=== PATIENT | female | born 1930 | race Caucasian/White ===

== ENCOUNTER 2017-06-22 10:39 | Inpatient (IN) | payer MEDICARE, BC ==
[~2017-06-22] VITALS: Ht 152.4 cm; Wt 58.1 kg
[2017-06-22 13:00] VITALS: BP 175/63
[2017-06-22] MEDS ORDERED: ASPI-630 PO (14:34)
[2017-06-22] MEDS ORDERED: AMLO10TA2 PO (14:37)
[2017-06-22] MEDS ORDERED: ALEN35TA6 PO (14:37)
[2017-06-22] MEDS ORDERED: CALC500T PO (14:52)
[2017-06-22] MEDS ORDERED: GLUC500T10 PO (14:52)
[2017-06-22] MEDS ORDERED: CRAN200C2 PO (14:52)
[2017-06-22] MEDS ORDERED: MULT1TAB52 PO (14:52)
[2017-06-22] MEDS ORDERED: TRAM50TA PO (14:55)
[2017-06-22] MEDS ORDERED: OMEP40CA5 PO (14:55)
[2017-06-22] MEDS ORDERED: TIOT18CA IH (14:55)
[2017-06-22] MEDS ORDERED: SALM50DI IH (14:55)
[2017-06-22 15:00] VITALS: BP 166/70
[2017-06-22] MEDS ORDERED: MORPHINE SULFATE 2 MG/ML DISP.SYRIN. IV PRN (15:15)
[2017-06-22] MEDS ORDERED: traMADol 50 MG TABLET PO PRN (15:30)
[2017-06-22] MEDS: methylPREDNISolone SOD SUCC PF 40 MG/ML VIAL. IV SCH ×2 (15:32→22:02)
[2017-06-22] MEDS: AZITHROMYCIN 250 MG TABLET. PO SCH (15:33)
[2017-06-22] MEDS: LIDOCAINE (700MG/PATCH) PATCH. TD SCH (15:33)
[2017-06-22] MEDS: MORPHINE SULFATE 4 MG/ML DISP.SYRIN. IV PRN ×2 (15:40→18:21)
[2017-06-22] MEDS: IPRATRPIUM/ALBUTEROL 0.5/2.5MG 3 ML NEBU. NEB SCH ×2 (16:09→20:09)
[2017-06-22] MEDS: oxyCODONE IR 5 MG TABLET PO PRN ×2 (17:32→23:58)
[2017-06-22] MEDS: cefTRIAXone IV Push 1 GM VIAL. IVP SCH (17:32)
[2017-06-22 19:00] VITALS: BP 154/71
[2017-06-22] MEDS: DOCUSATE SODIUM 100 MG CAPSULE. PO SCH (20:07)
[2017-06-22] MEDS: LACTOBACILLUS RHAMNOSUS GG 1 CAPSULE. PO SCH (20:07)
[2017-06-22 23:46] VITALS: BP 160/91
[2017-06-23] VITALS (10 sets, daily range): BP systolic 141–163; BP diastolic 68–87
[2017-06-23] MEDS: oxyCODONE IR 5 MG TABLET PO PRN (05:08)
[2017-06-23 06:06] LABS: INR 1.2 (0.8-1.1); PROTHROMBIN TIME PATIENT 14.4 SEC (11.7-14.0)
[2017-06-23 06:08] LABS: BASO % 0 % (0-3); EOS % 0 % (0-3); HEMATOCRIT 40.8 % (36.0-47.0); HEMOGLOBIN 13.6 g/dL (12.0-15.5); LYMPH # 1.1 x10^3/uL (1.0-4.8); LYMPH % 14 % (24-48); MEAN CORPUSCULAR HEMOGLOBIN 31 pg (25-35); MEAN CORPUSCULAR HGB CONC 33 g/dL (31-37); MEAN CORPUSCULAR VOLUME 93 fL (79-100); MONO % 4 % (0-9); NEUT % 82 % (31-73); PLATELET COUNT 184 x10^3/uL (140-400); RED BLOOD COUNT 4.39 x10^6/uL (3.50-5.40); RED CELL DISTRIBUTION WIDTH 14.2 % (11.5-14.5); WHITE BLOOD COUNT 7.8 x10^3/uL (4.0-11.0)
[2017-06-23 06:20] LABS: ALBUMIN 3.3 g/dL (3.4-5.0); ALBUMIN/GLOBULIN RATIO 0.9 (1.0-1.7); CALCIUM 8.8 mg/dL (8.5-10.1); CREATININE 0.5 mg/dL (0.6-1.0); GFR 117.3; POTASSIUM 3.9 mmol/L (3.5-5.1); TOTAL BILIRUBIN 0.4 mg/dL (0.2-1.0); TOTAL PROTEIN 7.1 g/dL (6.4-8.2)
[2017-06-23] MEDS: IPRATRPIUM/ALBUTEROL 0.5/2.5MG 3 ML NEBU. NEB SCH ×4 (07:56→18:19)
--- NOTE | 2017-06-23 08:19 | RAD ---
MRI Thoracic Spine without contrast History: Mid back pain, osteoporosis, T7 compression fracture Technique: Multiplanar, multi sequential noncontrast MR imaging was performed of the thoracic spine. Contrast: None Comparison: August 21, 2014 Findings: There is some motion degradation. There is recent T7 compression fracture, associated mild amorphous edema signified by T1 hypointense and STIR hyperintense signal. There is mild loss osseous retropulsion of the inferior margin without spinal stenosis. There is old superior T9 compression deformity. There is also superior L1 compression fracture believed to be old, minimal osseous retropulsion of the superior margin. There is mild accentuation of thoracic kyphosis. Thoracic cord caliber is within normal limits, no expansile or defined signal abnormality. There is shallow posterior protrusion at T8-T9, negligible protrusion in the left lateral recess T9-10. There is no significant thoracic spinal stenosis. There is mild neural foramina compromise bilaterally at T7-T8. There is moderate narrowing of the posterior left T11-12 neural foramen by facet. There is moderate to large hiatal hernia. There is mild degenerative disc disease about mid thoracic levels. Impression: 1. There is a recent, probably late subacute T7 compression fracture, mild associated marrow edema. There is minimal osseous retropulsion inferiorly without significant spinal stenosis. 2. There is old superior T9 compression fracture, also apparently old superior L1 compression fracture. 3. There is moderate to large hiatal hernia. Electronically signed by: Noah Weaver MD (06/23/2017 8:16 AM) [email or web address]
[2017-06-23] MEDS ORDERED: NON FORMULARY ITEM (Glucosamine Hcl 500 MG) PO SCH (09:00)
[2017-06-23] MEDS: ASPIRIN CHEWABLE 81 MG TABLET. PO SCH (09:00)
[2017-06-23] MEDS: POLYETHYLENE GLYCOL 3350 17 GM PACKET. PO SCH (09:00)
[2017-06-23] MEDS: LACTOBACILLUS RHAMNOSUS GG 1 CAPSULE. PO SCH ×2 (09:00→22:44)
[2017-06-23] MEDS: MULTIVITAMIN with MINERAL TABLET. PO SCH (09:00)
[2017-06-23] MEDS: LIDOCAINE (700MG/PATCH) PATCH. TD SCH (09:00)
[2017-06-23] MEDS: CALCIUM CARBONATE 500 MG TABLET PO SCH (09:00)
[2017-06-23] MEDS ORDERED: LIDOCAINE 1% / SOD BICARB 8.4% 20 ML VIAL. IJ ONE ×2 (09:43→12:15)
[2017-06-23] MEDS: AZITHROMYCIN 250 MG TABLET. PO SCH (09:45)
[2017-06-23] MEDS: amLODIPine BESYLATE 10 MG TABLET PO SCH (09:45)
[2017-06-23] MEDS: DOCUSATE SODIUM 100 MG CAPSULE. PO SCH ×2 (09:45→22:46)
[2017-06-23] MEDS: PANTOPRAZOLE 40 MG TABLET.DR. PO SCH (09:46)
[2017-06-23] MEDS: methylPREDNISolone SOD SUCC PF 40 MG/ML VIAL. IV SCH (09:46)
[2017-06-23] MEDS ORDERED: fentaNYL PF VIAL 100 MCG/2 ML VIAL ONE (11:48)
[2017-06-23] MEDS ORDERED: MIDAZOLAM HCL/PF 2 MG/2 ML VIAL. ONE (11:48)
[2017-06-23] MEDS: MUPIROCIN 2 % NASAL OINTMENT 22GM TUBE. NS SCH ×2 (12:00→21:00)
--- NOTE | 2017-06-23 12:07 | HP ---
ADMIT DATE: 06/22/2017 HISTORY OF PRESENT ILLNESS: The patient is an 86-year-old female patient who was transferred from [facility]. She was admitted with acute COPD exacerbation. Also, she came with a sudden severe back pain and the CT scan showed that she has T7 compression fracture and therefore, she was transferred to [facility] to do an MRI and to consult the interventional radiologist to see whether she is a candidate for kyphoplasty. Her CT scan of the chest with PE protocol showed no evidence of pulmonary embolism; however, it did show that she has right lower lobe infiltrate for which she was treated with IV antibiotic in the form of Zithromax and ceftriaxone. PAST MEDICAL HISTORY: Significant for chronic obstructive pulmonary disease, hypertension, generalized osteoarthritis, osteoporosis as well as glaucoma. She has a history of falls with right clavicular fracture, treated conservatively with a sling. She has also had kyphoplasty. She has compression fracture of L1 and T9, status post kyphoplasty. PAST SURGICAL HISTORY: Significant for bilateral cataract extraction, tonsillectomy, left mastectomy, total abdominal hysterectomy and bilateral salpingo-oophorectomy. She is status post L1 kyphoplasty. ALLERGIES: She has no known drug allergies. MEDICATIONS: She was transferred to continue alendronate sodium 35 mg weekly, amlodipine besylate 10 mg once a day, aspirin 81 mg once a day, calcium carbonate 500 mg daily. She is on cranberry extract 200 mg daily, glucosamine 500 mg daily, multivitamin 1 tablet once a day, omeprazole 40 mg once a day, Serevent Diskus 1 inhalation daily, Spiriva HandiHaler 1 inhalation once a day and tramadol 50 mg once a day. She is also on multivitamin 1 tablet once a day, Protonix 40 mg once a day, polyethylene glycol 17 grams once a day, Colace 100 mg p.o. b.i.d., ceftriaxone sodium 1 gram once a day, methylprednisolone 40 mg IV twice a day, Lidoderm patch topically on for 12 hours and off for 12 hours, Zithromax 500 mg once a day, morphine sulfate 2 mg IV every 2 hours and oxycodone 5 mg every 4 hours. FAMILY HISTORY: The patient has 3 sisters and one sister had coronary artery disease and she is morbidly obese, one sister underwent knee and hip replacement. The younger sister is seemingly healthy. Her father in his 70s and mother in her 60s due to uterine cancer. SOCIAL HISTORY: She is . She has 1 daughter and 2 sons. She is currently living with her daughter. She goes to [place] in wintertime. She lives actually with her sister there in a trailer park and comes back usually at the end of December. Lives here with her daughter although she is now living in an assisted living facility. She is an ex-smoker, quit in 1981. She smoked for 35 years, 1 pack a day. She does not drink alcohol. She worked for [employer] for ____ years. REVIEW OF SYSTEMS: The patient denied any blurring of vision. She did have bilateral cataract extraction and has glaucoma; however, she denied any earache, tinnitus or sensorineural deafness. Denied any nosebleeds, stuffy nose or postnasal drip. Denied any sore throat, sore tongue, toothache, hoarseness of voice or difficulty swallowing. Denied any nausea, vomiting, diarrhea or constipation. Denied any hematemesis, melena or hematochezia. Denied any dysuria, frequency or hematuria. Denied any chest pain. Did complain of shortness of breath, cough, which is mostly dry as well as acute onset back pain. PHYSICAL EXAMINATION: GENERAL: On examining her today, she looked well and was clearly in no apparent respiratory distress, pale, but no jaundice, cyanosis, or thyromegaly. No jugular venous distension. No lower limb edema. VITAL SIGNS: Her heart rate was 88, blood pressure 166/70, temperature was 98.2, respiratory rate was 20, and oxygen saturation was 92% on 2 liters of oxygen. HEAD, EYES, EARS, NOSE AND THROAT: Normocephalic, atraumatic. NECK: Supple. HEART: Showed normal first and second heart sounds with no gallop, rub or murmur. CHEST: Clear to auscultation. No crepitation or rhonchi. ABDOMEN: Distended, soft, nontender. No guarding or rigidity. No organomegaly. Hernial orifices intact. Bowel sounds normal. NEUROLOGIC: She is awake, alert, responding appropriately. Cranial nerves intact. She moves extremities without difficulty. She ambulates without assistance or assistive devices. Her intake was 675, output was 1600. LABORATORY DATA: Her lab work showed a white cell count of 7800, hemoglobin 13.6, hematocrit 40.8, MCV 93, and platelet count of 184,000. Her serum sodium was 139, potassium 3.9, chloride 101, bicarbonate 34, anion gap of 4, BUN 18, creatinine 0.5. Estimated GFR was 117 mL per minute. Her glucose 127, calcium 8.8. Total bilirubin, AST, ALT, alkaline phosphatase were normal. IMPRESSION: In summary, this is an 86-year-old female patient who was admitted with acute hypoxic hypercapnic respiratory failure, chronic obstructive pulmonary disease exacerbation, right lower lobe infiltrate and acute onset of T7 compression fracture. PLAN: My plan is to arrange for her to continue with all her medications. I will start tapering down her steroids. Continue with IV antibiotic in the form of Zithromax and ceftriaxone. We will arrange for her to have an MRI and to consult Dr. Muniz to see whether she is a candidate for kyphoplasty. BRIANA ROMERO MD DR: JANETTE/tha JOB#: [id number] / [id number]
[2017-06-23] MEDS ORDERED: MIDAZOLAM HCL/PF 2 MG/2 ML VIAL. IV ONE (12:15)
[2017-06-23] MEDS ORDERED: fentaNYL PF VIAL 100 MCG/2 ML VIAL IV ONE (12:15)
--- NOTE | 2017-06-23 13:07 | RAD ---
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 Fracture demonstrated by CT and MRI imaging. Patient has persistent severe pain despite conservative management with inability to ambulate. Discussion: The risks and benefits of the procedure were discussed the patient. Informed consent was obtained. Timeout procedure was performed. The patient was placed in the prone position. The upper back was prepped and draped using sterile barrier technique. The T7 vertebra was identified fluoroscopically. A left transpedicular approach was chosen. 1% lidocaine without epinephrine was administered to the skin and overlying soft tissues. Under intermittent fluoroscopic guidance a 11-gauge needle was advanced, into the posterior vertebral body. A curved cement delivery needle was advanced into the contralateral vertebral body. Methylmethacrylate based bone cement was then instilled through the cement delivery needle under careful intermittent biplane fluoroscopy. No abnormal extravasation of cement was identified. Once adequate filling of the vertebra have been achieved the cement delivery needle and trocar needle removed. Manual pressure was held to achieve hemostasis. A sterile dressing was applied. No immediate complications were identified. The patient was returned to her room in stable condition. The procedures performed under conscious sedation including continuous cardiopulmonary monitoring via a dedicated sedation nurse. Sedation time was 44 minutes. Fluoroscopy time 10.1 minutes Dose area product 20 Gycm2 Impression: T7 vertebroplasty
[2017-06-23] MEDS: cefTRIAXone IV Push 1 GM VIAL. IVP SCH (16:00)
[2017-06-23] MEDS ORDERED: BISACODYL 10 MG SUPP.RECT. PR ONE (19:00)
[2017-06-23] MEDS ORDERED: MAGNESIUM CITRATE 296 ML SOLUTION. PO ONE (19:00)
--- NOTE | 2017-06-23 23:35 | PN ---
DATE: 06/23/2017 SUBJECTIVE: The patient is resting slightly propped up in bed, in no apparent distress. She continued to have complaints. She has continued to complain of low back pain, although she is pain free when she is lying in bed. She did have an MRI of her thoracic spine, which confirmed that she has recent probably late subacute T7 compression fracture with mild associated marrow edema. There is minimal osseous retropulsion inferiorly without significant spinal stenosis. There is also an old superior T7 compression fracture and old superior L1 compression fracture and she is scheduled for vertebroplasty today. PHYSICAL EXAMINATION: GENERAL: When I examined her this morning, she looked well and was clearly in no apparent respiratory distress, pale, but no jaundice, cyanosis or thyromegaly. No jugular venous distention. No lower limb edema. VITAL SIGNS: Her heart rate was 77, blood pressure was 147/80, temperature was 98.5, respiratory rate 20 and oxygen saturation was 91% on 2 liters of oxygen. HEAD, EYES, EARS, NOSE AND THROAT: Normocephalic and atraumatic. NECK: Supple. HEART: Showed normal first and second heart sounds with no gallop, rub or murmur. CHEST: Clear to auscultation. No crepitation or rhonchi. ABDOMEN: Distended, soft and nontender. No guarding or rigidity. No organomegaly. Hernial orifices intact. Bowel sounds normal. NEUROLOGIC: She was awake, alert and responding appropriately. Cranial nerves are intact. She moves extremities without difficulty. LABORATORY DATA: Her lab work is stable. Her prothrombin time was 14.4, INR of 1.1 and aPTT was 21. ASSESSMENT: 1. Acute hypoxic hypercapnic respiratory failure. 2. Chronic obstructive pulmonary disease exacerbation. 3. Right lower lobe infiltrate. 4. Acute T7 compression fracture. PLAN: 1. Obviously to proceed with vertebroplasty as planned. 2. Discontinue IV steroids and start prednisone 40 mg once a day tomorrow. I started her also on Bactroban ointment to be applied to both nostrils twice a day. If the patient remains stable, pain free and up and about, I will obviously discharge her to go back to her assisted living facility. I will order also SCDs for DVT prophylaxis for now. BRIANA ROMERO MD DR: JANETTE/tha JOB#: [id number] / [id number]
[2017-06-24 03:20] VITALS: BP 155/71
[2017-06-24 05:32] LABS: CALCIUM 8.9 mg/dL (8.5-10.1); CREATININE 0.6 mg/dL (0.6-1.0); POTASSIUM 3.3 mmol/L (3.5-5.1)
[2017-06-24 07:00] VITALS: BP 167/74
[2017-06-24] MEDS: IPRATRPIUM/ALBUTEROL 0.5/2.5MG 3 ML NEBU. NEB SCH ×4 (07:29→19:55)
[2017-06-24] MEDS: DOCUSATE SODIUM 100 MG CAPSULE. PO SCH ×2 (09:00→20:06)
[2017-06-24] MEDS: POLYETHYLENE GLYCOL 3350 17 GM PACKET. PO SCH (09:00)
[2017-06-24] MEDS: LIDOCAINE (700MG/PATCH) PATCH. TD SCH (09:00)
[2017-06-24] MEDS: MUPIROCIN 2 % NASAL OINTMENT 22GM TUBE. NS SCH ×2 (09:00→20:06)
[2017-06-24] MEDS: AZITHROMYCIN 250 MG TABLET. PO SCH (10:21)
[2017-06-24] MEDS: PANTOPRAZOLE 40 MG TABLET.DR. PO SCH (10:21)
[2017-06-24] MEDS: CALCIUM CARBONATE 500 MG TABLET PO SCH (10:21)
[2017-06-24] MEDS: LACTOBACILLUS RHAMNOSUS GG 1 CAPSULE. PO SCH ×2 (10:21→20:06)
[2017-06-24] MEDS: ASPIRIN CHEWABLE 81 MG TABLET. PO SCH (10:22)
[2017-06-24] MEDS: predniSONE 20 MG TABLET PO SCH (10:22)
[2017-06-24] MEDS: MULTIVITAMIN with MINERAL TABLET. PO SCH (10:22)
[2017-06-24] MEDS: amLODIPine BESYLATE 10 MG TABLET PO SCH (10:23)
[2017-06-24] MEDS: oxyCODONE IR 5 MG TABLET PO PRN (10:31)
[2017-06-24 11:00] VITALS: BP 143/71
[2017-06-24] MEDS: POTASSIUM CHLORIDE 20 MEQ TABLET.ER. PO SCH ×2 (14:22→20:06)
[2017-06-24 15:00] VITALS: BP 120/69
[2017-06-24 19:41] VITALS: BP 135/75
[2017-06-24] MEDS: CEFPODOXIME PROXETIL 100 MG TABLET. PO SCH (20:05)
--- NOTE | 2017-06-24 23:00 | PN ---
DATE: 06/24/2017 SUBJECTIVE: The patient is resting slightly propped up in bed, in no apparent distress. She is pain free when she is lying, but still have some pain when she stands up. She is still somewhat weak, but denied any shortness of breath. She did have her vertebroplasty done successfully yesterday and her pain is much better although it has not eliminated completely. PHYSICAL EXAMINATION: GENERAL: When I examined her this afternoon, she looked well and was clearly in no apparent respiratory distress, pale, no jaundice, cyanosis, or thyromegaly. No jugular venous distention. No limb edema. VITAL SIGNS: Her heart rate was 65, blood pressure 167/74, temperature was 97.9, respiratory rate was 17, and oxygen saturation was 97% 2-1/2 liters. HEAD, EYES, EARS, NOSE AND THROAT: Showed normocephalic, atraumatic. NECK: Supple. HEART: Showed normal first and second heart sounds with no gallop, rub or murmur. CHEST: Clear to auscultation. No crepitation or rhonchi. ABDOMEN: Distended, soft, nontender. NEUROLOGIC: She was awake, alert, responding appropriately. Cranial nerves intact. She moves extremities without difficulty. LABORATORY WORK: As of this morning showed a serum sodium 143, potassium 3.3, chloride 102, bicarbonate 37, anion gap of 4, BUN 18, creatinine 0.6, estimated GFR was 95 mL per minute. Her glucose was 96, calcium was 8.9. ASSESSMENT: 1. T7 compression fracture status post vertebroplasty. 2. Acute hypoxic hypercapnic respiratory failure, improving. 3. Chronic obstructive pulmonary disease exacerbation, stable. 4. Right lower lobe infiltrate. 5. Osteoporosis and osteoarthritis. 6. Hypertension. PLAN: My plan is to consult the PT, OT as well as the RT to do a 6-minute walks and hopefully discharge her tomorrow to assisted living if she felt that she is safe to be discharged. BRIANA ROMERO MD DR: JANETTE/tha JOB#: [id number] / [id number]
[2017-06-24 23:40] VITALS: BP 131/62
[2017-06-25] MEDS: oxyCODONE IR 5 MG TABLET PO PRN (00:09)
[2017-06-25 03:39] VITALS: BP 144/80
[2017-06-25 06:49] LABS: HEMATOCRIT 40.1 % (36.0-47.0); HEMOGLOBIN 13.3 g/dL (12.0-15.5); RED BLOOD COUNT 4.27 x10^6/uL (3.50-5.40); RED CELL DISTRIBUTION WIDTH 14.3 % (11.5-14.5); WHITE BLOOD COUNT 9.8 x10^3/uL (4.0-11.0)
[2017-06-25 06:58] LABS: ALBUMIN 3.3 g/dL (3.4-5.0); CALCIUM 8.9 mg/dL (8.5-10.1); CREATININE 0.5 mg/dL (0.6-1.0); GFR 117.3; POTASSIUM 4.4 mmol/L (3.5-5.1); TOTAL BILIRUBIN 0.5 mg/dL (0.2-1.0); TOTAL PROTEIN 6.7 g/dL (6.4-8.2)
[2017-06-25 07:00] VITALS: BP 127/70
[2017-06-25] MEDS: IPRATRPIUM/ALBUTEROL 0.5/2.5MG 3 ML NEBU. NEB SCH ×2 (08:17→11:59)
[2017-06-25] MEDS: LACTOBACILLUS RHAMNOSUS GG 1 CAPSULE. PO SCH (09:00)
[2017-06-25] MEDS: ASPIRIN CHEWABLE 81 MG TABLET. PO SCH (09:00)
[2017-06-25] MEDS: CEFPODOXIME PROXETIL 100 MG TABLET. PO SCH (09:00)
[2017-06-25] MEDS: LIDOCAINE (700MG/PATCH) PATCH. TD SCH (09:00)
[2017-06-25] MEDS: MULTIVITAMIN with MINERAL TABLET. PO SCH (09:01)
[2017-06-25] MEDS: POLYETHYLENE GLYCOL 3350 17 GM PACKET. PO SCH (09:01)
[2017-06-25] MEDS: amLODIPine BESYLATE 10 MG TABLET PO SCH (09:01)
[2017-06-25] MEDS: DOCUSATE SODIUM 100 MG CAPSULE. PO SCH (09:01)
[2017-06-25] MEDS: POTASSIUM CHLORIDE 20 MEQ TABLET.ER. PO SCH (09:01)
[2017-06-25] MEDS: predniSONE 20 MG TABLET PO SCH (09:02)
[2017-06-25] MEDS: AZITHROMYCIN 250 MG TABLET. PO SCH (09:02)
[2017-06-25] MEDS: CALCIUM CARBONATE 500 MG TABLET PO SCH (09:02)
[2017-06-25] MEDS: PANTOPRAZOLE 40 MG TABLET.DR. PO SCH (09:02)
[2017-06-25] MEDS: MUPIROCIN 2 % NASAL OINTMENT 22GM TUBE. NS SCH (09:02)
[2017-06-25 11:00] VITALS: BP 164/106
[2017-06-25] MEDS ORDERED: OXYC5CAP PO (11:31)
[2017-06-25] MEDS ORDERED: CEFP200T PO (11:31)
--- NOTE | 2017-06-25 12:09 | DS ---
DATE OF DISCHARGE: 06/25/2017 HOSPITAL COURSE: The patient is an 86-year-old female patient who was transferred from [facility] where she was admitted with acute hypoxic respiratory failure, chronic obstructive pulmonary disease exacerbation, chronic lower lobe pneumonia and acute T7 compression fracture. She has severe pain and therefore she was transferred to [facility] where an MRI was done, which showed that she has recent probably late subacute T7 compression fracture with mild associated moderate edema. There is minimal osseous retropulsion inferiorly without significant spinal stenosis. She has also an old superior T7 compression fracture and apparently old superior L1 compression fracture. She was seen in consultation by the interventional radiologist who performed kyphoplasty without successfully. Her pain has dramatically improved and today she has been able to sit on the edge of the bed and walked with a walker without assistance and it was felt that the patient safe to be discharged home with home health to continue tapering course of steroids as well as oral antibiotic. PHYSICAL EXAMINATION: GENERAL: When I saw her this morning, she looked well and was clearly in no apparent respiratory distress, pale, but no jaundice or cyanosis. No lymphadenopathy, no thyromegaly. No jugular venous distention. No limb edema. VITAL SIGNS: Her heart rate was 63, blood pressure 127/70, temperature was 97.7, respiratory rate was 16, and oxygen saturation was 95% on 2 liters of oxygen. HEAD, EYES, EARS, NOSE AND THROAT: Showed normocephalic, atraumatic. NECK: Supple. HEART: Showed normal first and second heart sounds. No gallop, rub or murmur. CHEST: Clear to auscultation. No crepitation or rhonchi. ABDOMEN: Distended, soft, nontender. No guarding or rigidity. No organomegaly. Hernial orifices intact. Bowel sounds normal. NEUROLOGIC: She was awake, alert, responding appropriately. Cranial nerves intact. She moves extremities without difficulty. She ambulates with a walker without assistance. Her intake over the last 24 hours was 1900, output was 900. LABORATORY DATA: This morning showed a serum sodium 142, potassium 4.4, chloride 103, bicarbonate 36, anion gap of 3, BUN 23, creatinine 0.5, estimated GFR was 117 mL per minute. Her glucose 104, calcium was 8.9. Total bilirubin, AST, ALT, alkaline phosphatase were normal. Total protein was 6.7, albumin 3.3. Her white cell count was 9800, hemoglobin 13, hematocrit 40, MCV 94 and platelet count of 194,000. Her prothrombin time was 14.4, INR 1.2 and aPTT was 21. DISCHARGE MEDICATIONS: She will be discharged home with home health to continue on Vantin 200 mg twice a day for 5 days, oxycodone 5 mg every 4 hours as needed, alendronate sodium 35 mg once a week, amlodipine besylate 10 mg once a day, aspirin 81 mg once a day, calcium carbonate 500 mg once a day, cranberry extract 200 mg once a day, glucosamine 500 mg daily, multivitamin with mineral 1 tablet once a day, omeprazole 40 mg once a day, Serevent Diskus 1 inhalation once a day, Spiriva HandiHaler 1 inhalation once a day and tramadol mg once a day. She will be also discharged on Lidoderm patch applied topically to the mid back on at 8:00 and off at 8:00 p.m. on Bactroban 2% ointment applied to both nostrils twice a day for 10 days and a tapering course of steroids in the form of prednisone 30 mg once a day for 2 days, 20 mg for 3 days, and 10 mg once a day for 3 days. FINAL DISCHARGE DIAGNOSES: 1. T7 compression fracture status post vertebroplasty. 2. Acute hypoxic hypercapnic respiratory failure, improving. 3. Chronic obstructive pulmonary disease exacerbation, stable. 4. Right lower lobe infiltrate, treated with IV antibiotic and now she is on oral Vantin. 5. Osteoporosis and osteoarthritis. 6. Hypertension. We will do a 6-minute walk and if she qualifies, we will order home oxygen. BRIANA ROMERO MD DR: JANETTE/tha JOB#: [id number] / [id number]
== END 2017-06-25 13:25 | disposition home health service (06) | DRG 515 ==
LOC: 6 SOUTH 13:25
PROVIDERS: ADMIT Internal Medicine; ATTEND Internal Medicine
PROC: 0PS43ZZ Reposition Thoracic Vertebra, Percutaneous Approach (ICD-10-PCS; principal; 2017-06-23)
PROC: 0PU43JZ Supplement Thoracic Vertebra with Synthetic Substitute, Percutaneous Approach (ICD-10-PCS; 2017-06-23)
DX: M48.54XA Collapsed vertebra, not elsewhere classified, thoracic region, initial encounter for fracture (principal); J96.01 Acute respiratory failure with hypoxia; J96.02 Acute respiratory failure with hypercapnia; J18.1 Lobar pneumonia, unspecified organism; J44.0 Chronic obstructive pulmonary disease with (acute) lower respiratory infection; J44.1 Chronic obstructive pulmonary disease with (acute) exacerbation; R60.9 Edema, unspecified; I10 Essential (primary) hypertension; M85.88 Other specified disorders of bone density and structure, other site; M15.9 Polyosteoarthritis, unspecified; M81.0 Age-related osteoporosis without current pathological fracture; Z80.49 Family history of malignant neoplasm of other genital organs; Z82.49 Family history of ischemic heart disease and other diseases of the circulatory system; Z90.710 Acquired absence of both cervix and uterus; Z87.891 Personal history of nicotine dependence; Z91.81 History of falling; Z98.41 Cataract extraction status, right eye; Z98.42 Cataract extraction status, left eye; Z90.12 Acquired absence of left breast and nipple; Z90.89 Acquired absence of other organs; Z84.89 Family history of other specified conditions
CPT/HCPCS: 22510; 36415; 72146; 80048; 80053; 85025; 85027; 85610; 85730; 94250; 94620; 94640; 94760; 99152; 99153; C1725; J0690; J0696; J2250; J2270; J2920; J3010; J7512; J7620; Q0144; 97530

== ENCOUNTER → 2019-10-06 | Outpatient (CLI) | payer MEDICARE, BC ==
[2018-06-25 15:05] VITALS: BP 129/68
[~2019-10-06] MED LIST: ACET325T9 PO; ALBU2.5V8 INH; ALEN35TA11 PO; ALEN70TA3 PO; AMLO10TA8 PO; ASPI-630 PO; BRIM5DRO2 OP; CALC500T31 PO; CEFP200T PO; CEPH500C PO; CRAN200C2 PO; DOCU-109 PO; GLUC1TAB71 PO; GLUC500T10 PO; IPRA0.2S5 NEB; LACT1CAP19 PO; LOPE2CAP PO; MULT1TAB52 PO; OMEP40CA45 PO; ONDA-84 PO; OXYC5CAP PO; OXYC5TAB4 PO; POLY17PO29 PO; POTA20TA4 PO; SALM50DI IH; TIOT18CA IH; TRAM50TA PO
--- NOTE | 2019-10-06 15:37 | [facility] ---
MRI Lumbar Spine without contrast History: Back pain, compression fracture Technique: Multiplanar, multi sequential noncontrast MR imaging was performed of the lumbar spine. Comparison: June 22, 2018 Findings: Same numbering is utilized as for previous exam, transitional anatomy of the lumbar spine. There is again grade 1 anterior spondylolisthesis at what is considered L5-S1 and S1-2, assumption of 5 lumbar type vertebral bodies. There again has been vertebroplasty at L1 as seen previously, interval vertebroplasty at L2. There is old superior compression deformity of L4 and also central height loss of S1 as seen previously. There is new L5 compression deformity both superiorly and inferiorly, negligible osseous retropulsion superior margin without significant spinal stenosis. There is new mild edema of the inferior L3 endplate and also of the inferior L1 endplate more likely reactive/degenerative in etiology. Incompletely evaluated, there is some mild edema of the visualized inferior sacrum centrally and likely on the left on the left. There is again fairly severe degenerative disc disease at L2-3 and to lesser degree more eccentric to the right at L1-2, other mild disc desiccation. 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 Conus terminates near L1. There is again hemangioma of the internal or vertebral body in the right. There is mild lumbar levoscoliosis. Incompletely evaluated, there is likely left renal cyst, also likely left renal pelviectasis. There is hiatal hernia. T12-L1: There is again mild osseous retropulsion of the superior aspect of L1. Spinal canal and the neural foramina are adequate. L1-L2: There is new posterior bulge/broad protrusion with indentation upon the ventral thecal sac somewhat greater in the right recess the left about 3 to 4 mm greatest AP dimension. There is increased mild indentation upon the ventral thecal sac in the far right lateral recess, minimal narrowing of the far right lateral recess. There is somewhat increased moderate narrowing of the left neural foramen, also moderate narrowing of the right neural foramen somewhat greater. L2-L3: There is again very minimal disc osteophyte complex. There is again mild facet degenerative change and buckling of the ligamentum flavum. Spinal canal is not significantly narrowed. Left neural foramen is adequate, again moderate to severe narrowing of the right neural foramen mostly from facet although also by disc osteophyte complex. L3-L4: There is again buckling of the ligamentum flavum and facet degenerative change. There is again mild narrowing of the far left lateral recess. There is increased at least mild narrowing of the left neural foramen, right neural foramen very minimally narrowed. L4-L5: There is again facet degenerative change. Spinal canal is overall adequate. There is mild narrowing of the left neural foramen from facet, right neural foramen adequate. L5-S1: There is again facet degenerative change. There is minimal narrowing of the far left lateral recess from posteriorly. Neural foramina are not significantly narrowed. S1-S2: There is minimal facet hypertrophic change contributing to mild narrowing of the far left lateral recess from posteriorly. Neural foramina are not significantly narrowed. Impression: 1. There is again transitional anatomy, same numbering as utilized for previous exam with grade 1 anterior spondylolisthesis at what is considered L4-5 and L5-S1, assumption of 5 lumbar type vertebral bodies. There is recent L5 compression fracture with associated marrow edema, minimal osseous retropulsion superiorly without spinal stenosis. There is also apparently degree of sacral edema concerning for recent fracture although incompletely evaluated. There are other old lumbar compression fractures as described. 2. There is no new significant lumbar spinal stenosis, mild lateral recess stenosis as stated. There is multilevel lumbar neural foramina compromise as stated. There is degenerative disc disease greatest at L2-3. Electronically signed by: Noah Weaver MD (10/06/2019 3:34 PM) [facility] [id number]
== END ==
LOC: KCIC MRI 13:39
PROVIDERS: ATTEND Internal Medicine
DX: M43.17 Spondylolisthesis, lumbosacral region (principal); M51.36 Other intervertebral disc degeneration, lumbar region; M48.56XA Collapsed vertebra, not elsewhere classified, lumbar region, initial encounter for fracture; R60.9 Edema, unspecified; M48.08 Spinal stenosis, sacral and sacrococcygeal region; M25.78 Osteophyte, vertebrae; M47.817 Spondylosis without myelopathy or radiculopathy, lumbosacral region
CPT/HCPCS: 72148

== ENCOUNTER 2019-10-17 08:04 | Outpatient (CLI) | payer MEDICARE, BC ==
[2019-10-17] VITALS (9 sets, daily range): BP systolic 121–159; BP diastolic 62–85
[~2019-10-17] VITALS: Ht 152.4 cm; Wt 54.0 kg
[2019-10-17 08:40] LABS: BASO % 1 % (0-3); EOS # 0.3 x10^3/uL (0.0-0.7); EOS % 4 % (0-3); HEMATOCRIT 36.3 % (36.0-47.0); HEMOGLOBIN 12.2 g/dL (12.0-15.5); LYMPH # 2.3 x10^3/uL (1.0-4.8); LYMPH % 39 % (24-48); MEAN CORPUSCULAR HEMOGLOBIN 31 pg (25-35); MEAN CORPUSCULAR HGB CONC 34 g/dL (31-37); MEAN CORPUSCULAR VOLUME 93 fL (79-100); MONO # 0.6 x10^3/uL (0.0-1.1); MONO % 10 % (0-9); NEUT # 2.8 x10^3/uL (1.8-7.7); NEUT % 47 % (31-73); PLATELET COUNT 193 x10^3/uL (140-400); RED CELL DISTRIBUTION WIDTH 13.1 % (11.5-14.5); WHITE BLOOD COUNT 6.1 x10^3/uL (4.0-11.0)
[2019-10-17 08:49] LABS: PROTHROMBIN TIME PATIENT 13.7 SEC (11.7-14.0)
[2019-10-17 08:52] LABS: CALCIUM 8.7 mg/dL (8.5-10.1); CREATININE 0.5 mg/dL (0.6-1.0); GFR 116.4; POTASSIUM 4.1 mmol/L (3.5-5.1)
[2019-10-17] MEDS ORDERED: MONT5TAB9 PO (08:52)
[2019-10-17] MEDS ORDERED: MONT10TA11 PO (08:52)
[2019-10-17] MEDS ORDERED: LIDO700A21 TP (08:52)
[2019-10-17] MEDS ORDERED: HYDR-2761 PO (08:52)
[2019-10-17] MEDS ORDERED: ALEN70TA3 PO (08:53)
[2019-10-17 08:58] LABS: ALBUMIN 3.8 g/dL (3.4-5.0); ALBUMIN/GLOBULIN RATIO 1.2 (1.0-1.7); TOTAL BILIRUBIN 0.4 mg/dL (0.2-1.0); TOTAL PROTEIN 6.9 g/dL (6.4-8.2)
[2019-10-17] MEDS ORDERED: fentaNYL PF VIAL 100 MCG/2 ML VIAL ONE (11:02)
[2019-10-17] MEDS ORDERED: IOHEXOL 300 MG/ML 100ML VIAL. ONE (11:03)
[2019-10-17] MEDS ORDERED: MIDAZOLAM HCL/PF 5 MG/5 ML VIAL. ONE (11:03)
[2019-10-17] MEDS ORDERED: ceFAZolin SODIUM IV Push 1 GM VIAL. IVP ONE ×2 (11:03→12:15)
[2019-10-17] MEDS ORDERED: LIDOCAINE 1% Multi-Dose 20 ML VIAL. ONE (11:03)
[2019-10-17] MEDS ORDERED: fentaNYL PF VIAL 100 MCG/2 ML VIAL IV ONE (12:15)
[2019-10-17] MEDS ORDERED: IOHEXOL 300 MG/ML 100ML VIAL. INT CAT ONE (12:15)
[2019-10-17] MEDS ORDERED: CONTRAST GIVEN. MC PRN (12:15)
[2019-10-17] MEDS ORDERED: MIDAZOLAM HCL/PF 5 MG/5 ML VIAL. IV ONE (12:15)
[2019-10-17] MEDS ORDERED: LIDOCAINE 1% Multi-Dose 20 ML VIAL. INJ ONE (12:15)
--- NOTE | 2019-10-17 14:14 | RAD ---
Fluoroscopically guided kyphoplasty, L5 Indication:Pathologic fracture secondary to bone mineralization. Fluoro time:11.5 minutes Dose area product: 62 Gycm2 Moderate sedation: The patient was appropriately monitored by a qualified independent observer throughout the course of the moderate sedation. [id number] sedation time:43 minutes Consent: The risks and benefits of the procedure were discussed with the patient. Informed consent was obtained. The patient was brought to the fluoroscopy suite and placed in the prone position. A timeout procedure was performed. Preprocedural antibiotics were administered. Procedure: The overlying skin was prepped and draped in the usual sterile fashion. All elements of maximal sterile barrier technique including the use of a cap, mask, sterile gown, sterile gloves, large sterile sheet, appropriate hand hygiene, and 2% chlorhexidine for cutaneous antisepsis (or acceptable alternative antiseptic per current guidelines) were followed for this procedure. Using a left transpedicular approach, and direct fluoroscopic guidance, a trocar needle was advanced to the posterior third of the targeted L5 vertebral body. Vertebral augmentation balloon was then coaxially introduced through the needle, into the more central vertebral body and was deployed. A curved cement delivery needle was advanced into the contralateral vertebral body. Contrast opacified polymethylmethacrylate was then very slowly and carefully introduced through the vertebral augmentation needle, using strict fluoroscopic control. Once adequate filling had been achieved the needles were removed and manual pressure was held. No significant extravasation or complication was identified. Sterile dressing was applied. Patient tolerated the procedure well, without apparent complication. Impression: Fluoroscopically guided, L5 kyphoplasty
--- NOTE | 2019-10-17 15:01 | NUR ---
Discharge Note: TC DA SILVA Discharge instructions and discharge home medications reviewed with Patient and her son/daughter and a copy given. All questions have been answered and understanding verbalized. The following instructions and handouts were given: post moderate sedation and vertebroplasty. Discontinued lines and drains: right wrist iv dc'd and tip intact. Patient discharged to home with son and daughter via personal vehicle.
== END 2019-10-17 15:00 ==
LOC: INTRAD 08:04
PROVIDERS: ATTEND Internal Medicine
DX: M48.56XA Collapsed vertebra, not elsewhere classified, lumbar region, initial encounter for fracture (principal); Z79.01 Long term (current) use of anticoagulants
CPT/HCPCS: 22514; 36415; 80053; 85025; 85610; 99152; 99153; C1713; C1758; J0690; J2250; J3010; J3490; Q9967